=== PATIENT | male | born 1950 | race Caucasian/White ===

== ENCOUNTER 2017-12-11 16:33 | Emergency (ER) | payer MEDICARE ==
[~2017-12-11] VITALS: Ht 172.7 cm; Wt 81.8 kg
[~2017-12-11 16:33] MED LIST: ASPI-500 PO; ATEN50TA PO; CHOL100046 PO; LISI10TA4 PO; MESA1.2T PO; MULT-1085 PO; NITR0.4T48 SL; OMEP20CA10 PO; PRAV40TA3 PO; TAMS0.4C32 PO
[2017-12-11] MEDS ORDERED: ondansetron/PF 4mg/2ml inj IV ONE (16:45)
[2017-12-11] MEDS ORDERED: HYDROmorphone 1 mg/ml syringe IV ONE (16:45)
[2017-12-11] MEDS ORDERED: HYDROmorphone inj. 0.5 MG/0.5 ML DISP.SYRIN IV ONE (16:50)
[2017-12-11 17:35] LABS: BASOPHILS % (AUTO) 0 % (0-1); EOSINOPHILS # (AUTO) 0.3 X10'3 (0-0.9); EOSINOPHILS % (AUTO) 0.9 % (0-6); HEMATOCRIT 53.9 % (42.0-52.0); HEMOGLOBIN 16.8 g/dl (14.0-17.9); LYMPHOCYTES # (AUTO) 0.3 X10'3 (1.1-4.8); LYMPHOCYTES % (AUTO) 0.9 % (21-51); MEAN CORPUSCULAR HEMOGLOBIN 18.7 PG (27.0-31.0); MEAN CORPUSCULAR HGB CONC 31.2 % (33.0-36.5); MEAN PLATELET VOLUME 8.9 FL (7.4-10.4); MONOCYTES % (AUTO) 3.5 % (2-12); NEUTROPHILS # (AUTO) 27.8 X10'3 (1.8-7.7); NEUTROPHILS % (AUTO) 94.7 % (42-75); PLATELET COUNT 268 X10'3 (140-440); RED BLOOD COUNT 8.98 X10'6 (4.70-6.10); RED CELL DISTRIBUTION WIDTH 21.2 % (11.5-14.5)
[2017-12-11 17:42] LABS: WHITE BLOOD COUNT 29.4 X10'3 (4.5-11.0)
[2017-12-11 17:45] LABS: INR 1.3 INR; PROTHROMBIN TIME 13.4 SECONDS (9.0-12.0)
[2017-12-11 17:50] LABS: ALANINE AMINOTRANSFERASE 57 U/L (12-78); ALBUMIN 4.3 G/DL (3.4-5.0); ALBUMIN/GLOBULIN RATIO 1.7 (1.1-1.5); ALKALINE PHOSPHATASE 216 IU/L (46-116); ANION GAP 14 (8-16); ASPARTATE AMINO TRANSFERASE 48 U/L (10-37); BILIRUBIN,TOTAL 1.7 MG/DL (0.1-1.0); BLOOD UREA NITROGEN 21 MG/DL (7-18); BUN/CREATININE RATIO 17.4 (5.4-32.0); CALCIUM 8.6 MG/DL (8.5-10.1); CHLORIDE 104 MMOL/L (99-107); CREATININE 1.21 MG/DL (0.60-1.10); GLUCOSE 120 MG/DL (70-104); LIPASE 192 U/L (73-393); POTASSIUM 3.4 MMOL/L (3.5-5.1); SODIUM 140 MMOL/L (135-145); TOTAL CARBON DIOXIDE 22.1 MMOL/L (24-32); TOTAL PROTEIN 6.9 G/DL (6.4-8.2); eGFR 60 ML/MIN
[2017-12-11 18:01] LABS: NEUTROPHILS % (MANUAL) 93 % (42-75); TOTAL CELLS COUNTED 100
[2017-12-11 18:02] LABS: LYMPHOCYTES % (MANUAL) 1 % (21-51); MONOCYTES % (MANUAL) 6 % (2-12); PLATELET ESTIMATE NORMAL
[2017-12-11 18:03] LABS: ANISOCYTOSIS 2+; HYPOCHROMASIA 2+; MICROCYTOSIS 2+; POIKILOCYTOSIS 1+; POLYCHROMASIA 1+
[2017-12-11] MEDS ORDERED: HYDR-3965 PO (18:59)
[2017-12-11] MEDS ORDERED: ONDA8TAB9 PO (18:59)
[2017-12-11] MEDS ORDERED: HYDROcodone/acetaminophen 5mg/325mg tablet PO ONE (19:00)
[2017-12-11 19:06] VITALS: BP 117/72
== END 2017-12-11 19:15 | disposition home or self-care (01) ==
LOC: ER 16:34
DX: R16.1 Splenomegaly, not elsewhere classified (principal); D72.829 Elevated white blood cell count, unspecified; I10 Essential (primary) hypertension; Z87.442 Personal history of urinary calculi; Z79.82 Long term (current) use of aspirin; Z79.899 Other long term (current) drug therapy
CPT/HCPCS: 36415; 71045; 74176; 80053; 83605; 83690; 84484; 85025; 85610; 87040; 93005; 96374; 96375; 99285; J1170; J2405; J7030

== ENCOUNTER 2018-04-30 13:35 | Outpatient (CLI) | payer MEDICARE ==
[2018-04-30] VITALS (21 sets, daily range): BP systolic 95–132; BP diastolic 66–92
[~2018-04-30 13:35] MED LIST changes: +ONDA8TAB9 PO
== END 2018-04-30 23:59 | disposition home or self-care (01) ==
LOC: CARD DIAG 13:35
PROVIDERS: ATTEND Internal Medicine Cardiovascular Disease
DX: R42 Dizziness and giddiness (principal); I10 Essential (primary) hypertension; Z87.891 Personal history of nicotine dependence; Z79.82 Long term (current) use of aspirin; Z79.899 Other long term (current) drug therapy
CPT/HCPCS: 93660